=== PATIENT | male | born 2000 | race Caucasian/White ===

== ENCOUNTER 2024-09-20 16:27 | Inpatient (IN) | payer BC ==
[2024-09-20] MEDS ORDERED: IBUPROFEN 600 MG TAB PO PRN (17:17)
[2024-09-20] MEDS ORDERED: haloperidoL 5 MG TAB PO PRN (17:17)
[2024-09-20] MEDS ORDERED: LORazepam 1 MG TAB PO PRN (17:17)
[2024-09-20] MEDS ORDERED: LORazepam 2 MG/ML INJ IM PRN (17:17)
[2024-09-20] MEDS ORDERED: HALOPERIDOL LACTATE 5 MG/ML 1 ML VIAL IM PRN (17:17)
[2024-09-20] MEDS ORDERED: ACETAMINOPHEN TAB 325 MG TAB PO PRN (17:17)
[2024-09-20] MEDS ORDERED: MAGNESIUM HYDROXIDE 2,400 MG/30 ML CUP PO PRN (17:17)
[2024-09-20] MEDS ORDERED: MAG HYDROX/AL HYDROX/SIMETH 355 ML BOTTLE PO PRN (17:17)
[2024-09-21] MEDS: traZODone HCL 50 MG TAB PO PRN (01:45)
[2024-09-21] MEDS: NICOTINE 14MG/24HR PATCH TRANSDERM SCH (09:56)
--- NOTE | 2024-09-21 17:19 | P.CONS ---
History of Present Illness - Reason for Consult Consult date: 09/21/24 - History of Present Illness 24 year old M with PMH of ADHD presents to [facility] for mental health concerns. [facility] consulted for medical management of this patient. He currently reports no complaints. Denies smoking cigarettes, EtOH or illicit drugs. BP 137/81, HR 109, T 97.2F, 97% on RA. General: non toxic, no distress, appears at stated age Derm: warm, dry Head: atraumatic, normocephalic, symmetric Mouth: no lip lesion, mucus membranes moist Cardiovascular: S1S2 reg, no murmur Lungs: Clear to auscultation bilaterally, no accessory muscle use Ext: no gross muscle atrophy, no edema, no contractures Neuro: no focal neuro deficits Psych: Alert and oriented. Based on my assessment of this patient, this patient meets a high complexity level of care. ADHD: Adderall 30 mg PO BID if OK with Psychiatry. Obesity: Structured weight loss program. CODE STATUS: FULL CODE. I have reviewed the following computing consultant notes: I have reviewed the results of the following tests: I have ordered the following tests:. I have discussed the care of this patient with the following independent historian: I have independently interpreted the following test below: I have discussed the management of this patient with the following physician: Past Medical History Past Medical History: No Reported History History of Any Multi-Drug Resistant Organisms: None Reported Past Surgical History: No Surgical Hx Reported Past Anesthesia/Blood Transfusion Reactions: No Reported Reaction Past Psychological History: ADD/ADHD Smoking Status: Never smoker Past Alcohol Use History: None Reported Past Drug Use History: None Reported - Past Family History Father Family Medical History: Unable to Obtain Mother Family Medical History: Unable to Obtain Medications and Allergies Allergies Allergy/AdvReac Type Severity Reaction Status Date / Time No Known Allergies Allergy Verified 09/20/24 17:17 Physical Exam Vitals: Vital Signs Temp Pulse Resp BP Pulse Ox 09/21/24 09:00 97.2 F L 109 H 137/81 97 09/21/24 01:59 97.7 F 59 L 18 125/92 95 Intake and Output 09/21/24 09/21/24 09/21/24 06:59 14:59 22:59 Other: Weight 142.882 kg
--- NOTE | 2024-09-22 10:36 | P.HP ---
Psychiatric H&P - . H&P Date: 09/22/24 History & Physical: Allergies Allergy/AdvReac Type Severity Reaction Status Date / Time No Known Allergies Allergy Verified 09/20/24 17:17 Vital Signs Temp 97.9 F 09/22/24 08:51 Pulse 72 09/22/24 08:51 Resp 16 09/22/24 08:51 BP 123/81 09/22/24 08:51 Pulse Ox 96 09/22/24 08:51 FiO2 09/22/24 09:37 IDENTIFYING DATA: Patient is a 24-year-old male who is employed CHIEF COMPLAINT: Presenting after suicide attempt via overdose HPI: Patient presents from [facility] after suicide attempt. During the assessment, patient is largely displaying psychological defense mechanisms of minimization. 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 He left work, went home, and reports he took oxycodone, Wellbutrin, Prednisone, and spironolactone in a suicide attempt. He had left the bathroom door open and his family was home at the time. His mother found him lethargic and called EMS. Patient reports that it was impulsive due to frustration. He states that a few days prior to admission, he had been feeling irritable, upset, and anxious. He reports fair mood generally but has been more stressed over the past week prior to admission. He endorses good sleep, good energy, good appetite, good concentration, and denies feelings of worthlessness. Patient denies any suicidal or homicidal ideations intent or plan. At this time patient denies any auditory or visual hallucinations. Patient denies any flight of ideas racing thoughts and increased in goal directed behavior. He denies access to firearms. PSYCH HX: No previous psychiatrist Therapist: Was seeing therapist for 5 years but he retired. Dr. Domingo. Current meds: Past tx: Hospitalizations: Denies NSSI: Denies SA: Denies PMH: Denies chronic medical issues ALLERGIES: Denies PCP: [facility] Primary Head injuries: Denies Seizures: Denies SUBSTANCE HX: Alcohol: Social Tobacco: Denies Cannabis: Denies Denies using other substances SOCIAL/LEGAL HX: He lives with his parents. Completed 2 years of college to pursue criminal justice. Spiritual/cultural: Mormonism and attends religion regularly Vocation: [employer] Legal problems: Denies FAM PSYCH HX: Denies all including suicide attempt MSE: General Appearance: Patient appears to be stated age is alert, directable, and attempts to cooperate. Patient appears to have good hygiene and grooming. Behavior: Patient is seated without any agitated behavior. Minimizing Speech: Patient's speech is fluent and nonpressured. Mood/Affect: Patient reports their mood is anxious, affect is constricted. Suicidality/Homicidality: Patient denies having any homicidal ideation intent or plan. s/p suicide attempt denies SI currently Perceptions: Patient denies any visual hallucinations and denies any auditory hallucinations Though content/process: There is no evidence of any delusional thought content and thought process is linear and goal-directed. Memory and concentration: AOX3, grossly intact for the purposes of this session. Can spell "WORLD" backwards Judgment and insight: Fair DIAGNOSIS: Adjustment disorder, unspecified PLAN -Patient is admitted under voluntary status to [facility] for stabilization of psychiatric symptoms and safety. Patient has signed adult voluntary form -Medications : Will send info on antidepressants but patient interested in psychotherapy and not willing to consider meds at this time -Patient was informed of the risks, benefits and side effects of the medications. Patient was offered medication information and declined it -Internal Medicine consult to perform medical evaluation and physical. -NRT -not needed as patient does not smoke -SW on board for discharge planning. Encourage patient to participate in groups to work on coping skills.
[2024-09-23] MEDS: FLUoxetine HCL 10 MG CAP PO SCH (13:27)
--- NOTE | 2024-09-23 18:15 | P.PN ---
Progress Note - Text Progress Note Date: 09/23/24 Interval History: Patient seen via HIPAA-compliant Zoom and patient consented. Patient was seen agreeable to speak with advertising copy writer in the office. Patient states that he has been "I'm breaking them out of their shell." He says he has been talking to other patients and attempting to help them. He was encouraged to focus on his recovery. He reports feeling significantly better since hospitalization. He expresses remorse for suicide attempt and states that "it was such a stupid thing to do. I should've just talked to my family." He reports having visited his mother and says she expressed the same sentiment. He says he will work on his mental health by attending regular therapy thereby avoiding frustration to build over time. He says he would like to see his father's therapist and psychiatrist. He was agreeable with initiating Prozac today after discussion. Patient was more insightful and engaged in less minimization of symptoms today. He reports sleeping and eating well. He expresses future orientation to return back to work. At this time patient denies any suicidal or homicidal ideation, intent or plan. Patient denies any auditory, visual hallucinations and denies any paranoia or delusions. Patient denies any side effects from the medications and has been compliant with meds. Mental Status Exam: General Appearance: Patient appears to be stated age is alert, directable, and cooperative. Good hygiene and grooming Behavior: Patient is calmly seated without any agitated behavior. Speech: Patient's speech is fluent and nonpressured. Mood/Affect: Mood is "very good", affect is congruent and constricted. Suicidality/Homicidality: Patient denies having any suicidal or homicidal i deation intent or plan. Perceptions: Patient denies any visual hallucinations and denies any auditory hallucinations Though content/process: There is no evidence of any delusional thought content and thought process is linear and goal-directed. Memory and concentration: AOX3, grossly intact for the purposes of this session Judgment and insight: Improving mildly Assessment Adjustment disorder with anxiety and depression Plan: -Patient continues to meet criteria for inpatient psychiatric admission for symptom stabilization and safety. Patient has signed adult voluntary form and was placed in patient's chart. -Medications: Start Prozac 10 mg daily for low mood and anxiety. Discussed risks, side effects, benefits, and alternatives with the patient. He expressed understanding and verbally consented to treatment. -When necessary Ativan and Haldol for agitation/aggression. -NRT - [nicotine patch] -SW on board for discharge planning. Encouraged the patient to participate in milieu. SW, please coordinate with patient for psychiatric and psychotherapy appts. If continuing to improve clinically, consider discharge tomorrow
[2024-09-23 22:50] VITALS: RESP 16
[2024-09-24 09:49] VITALS: BP 109/60; PULSE 59; TEMP 98.6
--- NOTE | 2024-09-24 12:50 | P.DS ---
Providers Date of admission: 09/21/24 01:20 Expected date of discharge: 09/24/24 Attending physician: Emily Griffiths MD Consults: 09/20/24 17:17 Consult Physician Routine Consulting Provider: Veto Physician Consult Reason/Comments: H&P and medical Do you want consulting provider notified?: Yes Primary care physician: Physician Nonstaff Hospital Course: Admission HPI: Admission note was completed by Dr. Sahni "CHIEF COMPLAINT: Presenting after suicide attempt via overdose H[facility]: [facility] During the assessment, patient is largely displaying psychological defense mechanisms of minimization. 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 He left work, went home, and reports he took oxycodone, Wellbutrin, Prednisone, and spironolactone in a suicide attempt. He had left the bathroom door open and his family was home at the time. His mother found him lethargic and called EMS. Patient reports that it was impulsive due to frustration. He states that a few days prior to admission, he had been feeling irritable, upset, and anxious. He reports fair mood generally but has been more stressed over the past week prior to admission. He endorses good sleep, good energy, good appetite, good concentration, and denies feelings of worthlessness. Patient denies any suicidal or homicidal ideations intent or plan. At this time patient denies any auditory or visual hallucinations. Patient denies any flight of ideas racing thoughts and increased in goal directed behavior. He denies access to firearms." Hospital course: Upon admission to the unit patient was [directable and agreeable to commence treatment and signed adult voluntary form]. Patient got along well with other patients on the unit and followed unit protocol. Patient was compliant with the medications and denied any side effects throughout hospital course. Patient was started on Prozac 10 mg 1 capsule/day with no side effects. Patient spoke of [his] stressors and engaged in therapy both group and individual. Patient was also seen by medical team for history and physical exam. Throughout the course of the hospitalization patient gradually improved with regards to [mood, anxiety], sleep and [returned back to their baseline level of functioning][became more future oriented with improved insight and judgment]. On the day of discharge patient denied any suicidal or homicidal ideations intent or plan denied any auditory or visual hallucinations. Patient endorsed wanting to live for [their health and family.] The patient denied any access to guns or weapons. Patient denied any paranoia and did not endorse any delusions. Patient does not have a significant history of substance abuse. . Patient was also counseled on the medications and need for regular compliance and was encouraged to follow-up with their outpatient appointment for mental health and also for primary care. [Prior to discharge a family meeting will be arranged by social services to answer any questions and ensure safety upon discharge incuding making sure that guns/weapons are either removed from the home or locked away.] The patient made a rapid recovery. Day of discharge she denied any suicidal or homicidal ideations. He denied any depression or anxiety. He notes a safety plan of calling 911 or [phone] as well as going to the emergency room if needed. He got 9 hours of sleep and notes that his energy, appetite and concentration are normal. He reflects on suicide attempt and notes that it was impulsive. Mental status exam: General Appearance: Patient appears to be he stated age is alert, pleasant, and cooperative. Patient is in no acute distress and has improved hygiene and grooming Behavior: Patient is calmly seated without any agitated behavior. Speech: Patient's speech is fluent and nonpressured. Mood/Affect: Patient reports their mood is "[good]", affect is congruent and euthymic. Suicidality/Homicidality: Patient denies having any suicidal or homicidal ideation intent or plan. Perceptions: Patient denies any auditory or visual hallucinations. Though content/process: There is no evidence of any delusional thought content and thought process is linear and goal-directed. [more future oriented] Memory and concentration: AOX3, grossly intact for the purposes of this session. Can spell "WORLD" backwards correctly. Judgment and insight: [chronically poor, however has] improved with guarded prognosis Impression: Adjustment disorder Plan: -Continue with discharge today as patient has improved and stabilized psychiatrically and is not currently an imminent threat to themself and/or others. -Continue medications: Prozac 10 mg take 1 capsule by mouth once daily for depression -Patient was counseled on the need for medication compliance and appropriate follow-up at mental health and also primary care for medical issues. Patient verbalized understanding and agreed. -Social work to [help coordinate patients discharge today][arrange for and conduct family meeting to ensure safety upon discharge and answer any questions/concerns]. also to ensure safe home environment that guns/weapons are either removed from the home or locked away. Social work also to arrange for patients follow up appointments for psychiatric care along with follow up with primary care provider. -Patient counseled on abstaining from recreational drugs and marijuana and alcohol. Was informed/educated on the adverse effects on their physical and mental health. Patient verbally agreed and understood. -Patient was instructed to return to the hospital or seek immediate medical care if their psychiatric or medical symptoms do worsen or reoccur. [INSERT DATA FORMATS] Patient Condition at Discharge: Stable Plan - Discharge Summary Discharge Rx Participant: Yes New Discharge Prescriptions: New FLUoxetine HCL [PROzac] 10 mg PO DAILY 30 Days #30 cap Discharge Medication List FLUoxetine HCL [PROzac] 10 mg PO DAILY 30 Days #30 cap 09/24/24 [Rx] Follow up Appointment(s)/Referral(s): Counts Include [facility] [Other] - 09/28/24 2:00 pm [facility] [Other] - 1 Week Patient Instructions/Handouts: Suicide Prevention (DC) Activity/Diet/Wound Care/Special Instructions: [facility] Discharge Info Avoid the use of street drugs and alcohol. Take all medications as prescribed. When you are in need of refills on your medications, please contact your outpatient medical provider and/or outpatient psychiatrist. Please go to your scheduled outpatient appointments for aftercare treatment. If symptoms return o r become worse, call the crisis line at or and/or visit the nearest emergency room for assistance. National Suicide and Crisis Lifeline - call or text 988 Discharge Disposition: HOME SELF-CARE
== END 2024-09-24 12:25 | disposition home or self-care (01) | DRG 882 ==
LOC: 3MHU 09-21 01:20
PROVIDERS: ADMIT Psychiatry & Neurology Psychiatry; ATTEND Psychiatry & Neurology Psychiatry
DX: F43.23 Adjustment disorder with mixed anxiety and depressed mood (principal); E66.9 Obesity, unspecified; Z68.37 Body mass index [BMI] 37.0-37.9, adult; F90.9 Attention-deficit hyperactivity disorder, unspecified type; T38.0X2D Poisoning by glucocorticoids and synthetic analogues, intentional self-harm, subsequent encounter; T40.2X2D Poisoning by other opioids, intentional self-harm, subsequent encounter; T43.292D Poisoning by other antidepressants, intentional self-harm, subsequent encounter; Z71.3 Dietary counseling and surveillance